=== PATIENT | female | born 2000 | race Two or more races ===

== ENCOUNTER 2021-11-22 01:45 | Emergency (ER) | payer OTHER ==
[~2021-11-22] VITALS: Ht 162.6 cm; Wt 65.0 kg
[2021-11-22] MEDS ORDERED: HYDROCODONE/ACETAMINOPHEN 10/325MG TABLET PO ONE (02:45)
[2021-11-22] MEDS ORDERED: NAP5EC MT (03:58)
[2021-11-22] MEDS ORDERED: LIDO700A30 TP (03:58)
[2021-11-22 04:34] VITALS: BP 130/75
== END 2021-11-22 04:35 | disposition home or self-care (01) ==
LOC: ER 01:45
DX: S13.8XXA Sprain of joints and ligaments of other parts of neck, initial encounter (principal); S90.01XA Contusion of right ankle, initial encounter; S90.31XA Contusion of right foot, initial encounter; S80.11XA Contusion of right lower leg, initial encounter; R51.9 Headache, unspecified; R06.02 Shortness of breath; V49.49XA Driver injured in collision with other motor vehicles in traffic accident, initial encounter; Y93.89 Activity, other specified; Y92.415 Exit ramp or entrance ramp of street or highway as the place of occurrence of the external cause
CPT/HCPCS: 71045; 73590; 73610; 99284